=== PATIENT | female | born 1985 | race Asian ===

== ENCOUNTER 2017-12-17 12:33 | Emergency (ER) | payer MEDICAID ==
[~2017-12-17] VITALS: Ht 167.6 cm; Wt 113.0 kg
[2017-12-17 19:19] VITALS: BP 124/79
== END 2017-12-17 19:20 | disposition home or self-care (01) ==
LOC: ER 12:33
DX: B35.4 Tinea corporis (principal); F17.200 Nicotine dependence, unspecified, uncomplicated
CPT/HCPCS: 82962; 99282